=== PATIENT | female | born 1950 | race African-American/Black ===

== ENCOUNTER 2017-04-16 19:19 | Emergency (ER) | payer OTHER ==
[2017-04-16 19:22] VITALS: BP 186/79; PULSE 85; RESP 16; TEMP 98.7; O2SAT 98
[2017-04-16 20:20] VITALS: O2SAT 94
[2017-04-16] MEDS ORDERED: SYNT25TA PO (20:20)
[2017-04-16] MEDS ORDERED: HYDR12.57 PO (20:20)
[2017-04-16] MEDS ORDERED: VALS1TAB70 PO (20:20)
[2017-04-16] MEDS ORDERED: SIMV5TAB3 PO (20:20)
[2017-04-16] MEDS ORDERED: OMEGCAP PO (20:22)
[2017-04-16] MEDS ORDERED: CHOL1CAP14 PO (20:22)
[2017-04-16] MEDS ORDERED: SODIUM CHLORIDE 0.9% FLUSH 10 ML FLUSH IVF PRN (20:30)
--- NOTE | 2017-04-16 20:35 | PD ---
HPI Chief Complaint: Cardiac Complaint Time Seen by Provider: 20:03 Travel History International Travel<30 days: No Contact w/Intl Traveler<30days: No Traveled to known affect area: No History of Present Illness HPI Patient 58-year-old female presents emergency department for progression of symptoms that started in her left upper extremity. Patient has had a cough and cold and went to her primary care provider who told her for symptomatic management because she had had a pneumonia shot placed a pneumonia shot in her left arm. Patient states that she returned a few days later with the arm very red she was started on methyl prednisolone Dosepak and stated that since she started that she's been having some palpitations in her chest as well as some head tightness. She denies any fever denies any nausea vomiting denies any shortness of breath. States his symptoms began gradually getting worse and she decided to come in and be seen. PFSH Past Medical History High Cholesterol: Yes Hypertension: Yes Thyroid Disease: Yes Menopausal: Yes Past Surgical History Hysterectomy: Yes Social History Alcohol Use: Yes (SELDOM) Tobacco Use: No Substance Use: No Allergies-Medications (Allergen,Severity, Reaction): Coded Allergies: Aspirin (Verified Allergy, Severe, Hives, 04/16/17) Tetanus Toxoid (Verified Allergy, Unknown, 04/16/17) Reported Meds & Prescriptions Reported Meds & Active Scripts Active Keflex (Cephalexin) 500 Mg Capsule 500 Mg PO Q6H 7 Days Reported Slater-3 Fish Oil/Vitamin (Fish Oil-Cholecalciferol) 1,000-1,000 Mg Cap 1 Cap PO DAILY D3 Maximum Strength (Cholecalciferol) 5,000 Unit Cap 5,000 Units PO DAILY Simvastatin 5 Mg Tab 5 Mg PO DAILY Valsartan 320 Mg Tab 320 Mg PO DAILY Hydrochlorothiazide 12.5 Mg Cap 12.5 Mg PO DAILY Synthroid (Levothyroxine Sodium) 25 Mcg Tab 25 Mcg PO DAILY Review of Systems Except as stated in HPI: all other systems reviewed are Neg Physical Exam Narrative GENERAL: Well-developed well-nourished no apparent distress SKIN: There is a significant portion of erythema on the posterior lateral aspect of the left upper extremity over the tricep. The very sharply demarcated and the edges are slightly raised, there is no central clearing, the areas of erythema have began desquamate concerning areas. HEAD: Atraumatic. Normocephalic. EYES: Pupils equal and round. No scleral icterus. No injection or drainage. ENT: No nasal bleeding or discharge. Mucous membranes pink and moist. NECK: Trachea midline. No JVD. CARDIOVASCULAR: Regular rate and rhythm. No murmur appreciated. 2+ bilateral equal pulses in all 4 extremity's. RESPIRATORY: No accessory muscle use. Clear to auscultation. Breath sounds equal bilaterally. GASTROINTESTINAL: Abdomen soft, non-tender, nondistended. Hepatic and splenic margins not palpable. MUSCULOSKELETAL: No obvious deformities. No clubbing. No cyanosis. No edema. NEUROLOGICAL: Awake and alert. No obvious cranial nerve deficits. Motor grossly within normal limits. Normal speech. PSYCHIATRIC: Appropriate mood and affect; insight and judgment normal. Data Data Last Documented VS Vital Signs Date Time Temp Pulse Resp B/P Pulse Ox O2 Delivery O2 Flow Rate FiO2 04/16/17 20:20 94 04/16/17 20:20 Room Air 04/16/17 19:22 98.7 85 16 186/79 Orders Electrocardiogram (04/16/17 20:16) Complete Blood Count With Diff (04/16/17 20:16) Comprehensive Metabolic Panel (04/16/17 20:16) Magnesium (Mg) (04/16/17 20:16) Prothrombin Time / Inr (Pt) (04/16/17 20:16) Act Partial Throm Time (Ptt) (04/16/17 20:16) Troponin I (04/16/17 20:16) Chest, Single Ap (04/16/17 20:16) Ecg Monitoring (04/16/17 20:16) Iv Access Insert/Monitor (04/16/17 20:16) Oximetry (04/16/17 20:16) Oxygen Administration (04/16/17 20:16) Sodium Chloride 0.9% Flush (Ns Flush) (04/16/17 20:30) Labs Laboratory Tests Test 04/16/17 20:22 White Blood Count 20.6 TH/MM3 Red Blood Count 4.72 MIL/MM3 Hemoglobin 13.7 GM/DL Hematocrit 41.1 % Mean Corpuscular Volume 87.0 FL Mean Corpuscular Hemoglobin 29.0 PG Mean Corpuscular Hemoglobin 33.4 % Concent Red Cell Distribution Width 14.0 % Platelet Count 271 TH/MM3 Mean Platelet Volume 8.6 FL Neutrophils (%) (Auto) 76.1 % Lymphocytes (%) (Auto) 12.3 % Monocytes (%) (Auto) 10.9 % Eosinophils (%) (Auto) 0.1 % Basophils (%) (Auto) 0.6 % Neutrophils # (Auto) 15.7 TH/MM3 Lymphocytes # (Auto) 2.5 TH/MM3 Monocytes # (Auto) 2.2 TH/MM3 Eosinophils # (Auto) 0.0 TH/MM3 Basophils # (Auto) 0.1 TH/MM3 CBC Comment AUTO DIFF Differential Total Cells 100 Counted Neutrophils % (Manual) 66 % Band Neutrophils % 9 % Lymphocytes % 16 % Monocytes % 9 % Neutrophils # (Manual) 15.5 TH/MM3 Differential Comment FINAL DIFF MANUAL Platelet Estimate NORMAL Platelet Morphology Comment NORMAL Red Cell Morphology Comment NORMAL Prothrombin Time 11.0 SEC Prothromb Time International 1.0 RATIO Ratio Activated Partial 25.4 SEC Thromboplast Time Sodium Level 139 MEQ/L Potassium Level 3.8 MEQ/L Chloride Level 101 MEQ/L Carbon Dioxide Level 28.5 MEQ/L Anion Gap 10 MEQ/L Blood Urea Nitrogen 23 MG/DL Creatinine 0.97 MG/DL Estimat Glomerular Filtration 69 ML/MIN Rate Random Glucose 91 MG/DL Calcium Level 8.6 MG/DL Magnesium Level 2.7 MG/DL Total Bilirubin 0.3 MG/DL Aspartate Amino Transf 55 U/L (AST/SGOT) Alanine Aminotransferase 118 U/L (ALT/SGPT) Alkaline Phosphatase 73 U/L Troponin I LESS THAN 0.02 NG/ML Total Protein 7.7 GM/DL Albumin 3.3 GM/DL [place] Medical Decision Making Medical Screen Exam Complete: Yes Emergency Medical Condition: Yes Interpretation(s) EKG shows sinus bradycardia rate of 52, normal axis normal R-wave progression. No concerning ST T changes. This normal EKG except for rate. Differential Diagnosis Medication reaction, erysipelas, reaction to pneumonia shot, ACS unlikely, PNA unlikely, Narrative Course Patient was roomed in emergency department, quite pleasant female. Highly atypical for ACS. She does have some erythema of the posterior aspect of the left upper extremity, consistent with either a localized reaction to pneumococcal vaccine which is favored given the history of reactions to tetanus toxoid. The patient EKG troponin and chest x-ray basic labs are reassuring. She does have an elevated white blood cell count but the patient has been on steroids. Clinically I believe she is stable for discharge at this time. Discussed with her that coronary artery disease is very difficult to exclude in the emergency department without admitting for observation and stress testing though she is highly atypical and I think the likelihood of her having critical stenosis is very low especially given her symptoms now. She would like to follow-up with her primary care physician I think this is reasonable. She will hold the steroids for now and begin antibiotic therapy, discussed return to ED criteria. Diagnosis Primary Impression: Erysipelas Additional Impression: Atypical chest pain Additional Instructions: Try Solarcaine and Cortisone cream. Med/Other Pt SpecificInfo: Prescription(s) given Scripts Cephalexin (Keflex)500 Mg [id number] Mg PO Q6H 7 Days Ref 0 Prov:Hakeem Valdes MD 04/16/17 Disposition: 01 DISCHARGE HOME Condition: Stable Hakeem Valdes MD Apr 16, 2017 20:35
[2017-04-16 20:39] LABS: AUTOMATED NEUTROPHIL # 15.7 TH/MM3 (1.8-7.7); BASOPHIL # 0.1 TH/MM3 (0-0.2); BASOPHIL % 0.6 % (0.0-2.0); EOSINOPHIL % 0.1 % (0.0-4.0); HEMATOCRIT 41.1 % (35.0-46.0); LYMPH % 12.3 % (9.0-44.0); LYMPHOCYTE # 2.5 TH/MM3 (1.0-4.8); MEAN CORPUSCULAR HGB CONC 33.4 % (32.0-36.0); MONO % 10.9 % (0.0-8.0); NEUT % 76.1 % (16.0-70.0); PLATELET COUNT 271 TH/MM3 (150-450); RED BLOOD COUNT 4.72 MIL/MM3 (4.00-5.30); WHITE BLOOD COUNT 20.6 TH/MM3 (4.0-11.0)
[2017-04-16 20:45] LABS: HEMO FLAGS AUTO DIFF
[2017-04-16 20:51] LABS: ALT (GPT) 118 U/L (10-53); ANION GAP 10 MEQ/L (5-15); AST (GOT) 55 U/L (15-37); BICARBONATE 28.5 MEQ/L (21.0-32.0); BLOOD UREA NITROGEN 23 MG/DL (7-18); CHLORIDE 101 MEQ/L (98-107); GLOMERULAR FILTRATION RATE 69 ML/MIN (>89); MAGNESIUM 2.7 MG/DL (1.5-2.5); POTASSIUM 3.8 MEQ/L (3.5-5.1); SODIUM (NA) 139 MEQ/L (136-145)
[2017-04-16 20:55] LABS: ALKALINE PHOSPHATASE 73 U/L (45-117); TOTAL BILIRUBIN ADULT 0.3 MG/DL (0.2-1.0)
[2017-04-16 21:01] LABS: APTT (PATIENT) 25.4 SEC (24.3-30.1)
[2017-04-16 21:13] LABS: BANDS 9 % (0-6); NEUTROPHIL # MANUAL DIFF 15.5 TH/MM3 (1.8-7.7); POLYS (SEG NEUTROPHILS) 66 % (16-70); WBC DIFF SAMPLE 100
[2017-04-16 21:14] LABS: PLATELET ESTIMATE SMEAR NORMAL (NORMAL); PLATELET MORPHOLOGY NORMAL (NORMAL); SCAN/DIFF FINAL DIFF MANUAL
--- NOTE | 2017-04-16 21:25 | RADRPT ---
EXAM DATE/TIME: 04/16/2017 21:07 [facility] COMPARISON: No previous studies available for comparison. INDICATIONS : Chest pain and left arm rash after pneumonia vaccination. MEDICAL HISTORY : Hypertension. SURGICAL HISTORY : None. ENCOUNTER: Initial ACUITY: 4 - 6 days PAIN SCORE: 3/10 LOCATION: chest FINDINGS: A single view of the chest demonstrates the lungs to be symmetrically aerated without evidence of mas s, infiltrate or effusion. The cardiomediastinal contours are unremarkable. Osseous structures are intact. CONCLUSION: No acute disease. Alex Sal MD on April 16, 2017 at 21:22 Board Certified Radiologist. This report was verified electronically.
[2017-04-16] MEDS ORDERED: CEPH-460 PO (21:45)
--- NOTE | 2017-04-17 09:37 | EKG ---
Date Performed: 04/16/2017 Time Performed: 20:20:41 PTAGE: 66 years EKG: SINUS BRADYCARDIA BORDERLINE ECG PREVIOUS TRACING : 12/23/2004 09.35 DOCTOR: Milton Dallas Interpretating Date/Time 04/17/2017 09:32:27
== END 2017-04-16 22:07 | disposition home or self-care (01) ==
LOC: NEPE 19:19
DX: A46 Erysipelas (principal); R07.89 Other chest pain; I10 Essential (primary) hypertension; R94.31 Abnormal electrocardiogram [ECG] [EKG]
CPT/HCPCS: 71010; 80053; 83735; 84484; 85007; 85027; 85610; 85730; 93005; 99285